=== PATIENT | female | born 1985 | race Asian ===

== ENCOUNTER 2016-02-29 01:59 | Emergency (ER) | payer OTHER ==
[~2016-02-29] VITALS: Ht 172.7 cm; Wt 62.6 kg
[2016-02-29 02:02] VITALS: TEMP 36.9; Ht 172.7 cm; Wt 62.6 kg
[2016-02-29] MEDS ORDERED: ALBUT/IPRATROP 3MG/0.5MG NEB 3 ML VIAL INH STA (02:24)
--- NOTE | 2016-02-29 02:39 | EMERGENCY ROOM VISIT NOTE ---
History Report prepared by Aga: Layla Arteaga Under the Supervision of: Dr. Geovanna Dominguez D.O. First contact with patient: 02:16 Chief Complaint: COUGH Stated Complaint: COUGH,CONGESTED,LOSING VOICE,SOME VOMITING Nursing Triage Summary: c/o a cough for a week. dry cough now " paula loosing my voice." History of Present Illness The patient is a 30 year old female who presents to the Emergency Room with complaints of a persistent cough that began one week ago, but has gradually been worsening. She currently rates her discomfort as a 7/10 in severity. The patient states that she began losing her voice this week. She states that within the last few days she has been coughing so much that she begins to vomit. The patient states that she is experiencing burning body aches due to the coughing. She states that for the past hour she was persistently vomiting so she came for further evaluation. The patient states that she has had bronchitis in the past, but denies any history of asthma or pneumonia. She additionally notes that she has had a fever this week. 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 She denies any active medical problems. Source of History: patient Onset: one week ago Position: other (global) Symptom Intensity: 7/10 Quality: other (cough) Timing: worsening (gradually), other (persistent) Associated Symptoms: + fevers, + vomiting Note: Associated Symptoms: burning body aches. Review of Systems See HPI for pertinent positives & negatives. A total of 10 systems reviewed and were otherwise negative. Past Medical & Surgical Surgical Problems: (1) [place] teeth extracted Family History Diabetes mellitus Heart disease Hypertension Social History Smoking Status: Never Smoker Smokeless Tobacco Use: No Alcohol Use: none Marital Status: Housing Status: lives with significant other Occupation Status: employed Current/Historical Medications Scheduled Control Pills ( Control Pills), 1 TAB PO DAILY Hydrocodone W/ Homatropine (Hycodan 5/1.5MG 5 Ml), 5 ML PO Q4H Scheduled PRN Epinephrine (Epipen), 0.3 MG IM UD PRN for ALLERGIC REACTION Allergies Coded Allergies: Aspirin (Verified Allergy, Severe, ANAPHYLAXIS, 02/29/16) Cat Dander (Verified Allergy, Unknown, SWELLING, 02/29/16) Dog Dander (Verified Allergy, Unknown, SWELLING, 02/29/16) Physical Exam Vital Signs Date Time Temp Pulse Resp B/P Pulse Ox O2 Delivery O2 Flow Rate FiO2 02/29/16 04:56 68 20 99 02/29/16 03:54 68 18 107/62 99 Room Air 02/29/16 02:14 98 Room Air 02/29/16 02:02 99 Room Air 02/29/16 02:02 36.9 95 20 124/87 97 Room Air Physical Exam HEENT: Head - normocephalic and atraumatic Pupils are equal, round, and reactive to light. Extraocular eye muscles are intact, and sclera are anicteric. Nose - moist nasal mucosa without discharge. Mouth - moist buccal mucosa. Oropharynx is moderately erythematous and there is no tonsillar exudate or edema noted. Neck: Supple; no JVD, nuchal rigidity, cervical lymphadenopathy. Heart: Regular rate and rhythm. There is a normal S1 and S2 with no murmurs, clicks, or gallops appreciated. Lungs: Expiratory wheezing. no rales, or rhonchi. Abdomen: Soft, completely nontender, nondistended, with good bowel sounds. There are no palpable pulsatile masses or hepatosplenomegaly. There is no guarding, rigidity, or rebound noted. Extremities: No evidence of cyanosis, clubbing, or edema. There are easily palpable peripheral pulses. Skin: warm and dry with good turgor and no rashes. Medical Decision & Procedures ER Provider Diagnostic Interpretation: Chest x-ray: no pulmonary infiltrate, no pneumothorax. Laboratory Results Test 02/29/16 02:32 Influenza Type A Antigen Neg for Influ A (NEG) Influenza Type B Antigen Neg for Influ B (NEG) Laboratory results per my review. Medications Administered Medications (Trade) Dose Ordered Sig/Jassi Route Start Time Stop Time Status Last Admin Dose Admin Albuterol/ Ipratropium (Duoneb) 3 ml NOW STAT INH 02/29/16 02:24 02/29/16 02:26 DC 02/29/16 02:34 3 ML Hydrocodone Bit/ Homatropine Methylb (Hycodan Syrup) 5 ml NOW STAT PO 02/29/16 03:37 02/29/16 03:39 DC 02/29/16 03:43 5 ML Albuterol (Ventolin Hfa Inhaler) 2 puffs NOW ONCE INH 02/29/16 04:15 02/29/16 04:16 DC 02/29/16 04:33 2 PUFFS Procedure Patient was treated with DuoNeb 3 ml INH, Hycodan Syrup 5 ml PO, Albuterol 2 puffs INH. ED Course 0219: Past medical records reviewed. The patient was evaluated in room A3. A complete history and physical exam was performed. 0224: Ordered DuoNeb 3 ml INH. Patient had a chest x-ray as described above. 0337: The patient is still coughing. Ordered Hycodan Syrup 5 ml PO. 0405: I reevaluated the patient and she is feeling much better. I discussed the exam findings with her and I discussed the treatment plan with her. She verbalized complete understanding and agreement. She is ready to go home. 0415: Ordered Albuterol 2 puffs INH to go home. Medical Decision The patient is a 30 year old female who presents to the ED with a cough. Differential diagnosis includes bronchitis, pneumonia, reactive airway disease, pharyngitis. Lab interpretation: negative influenza. This is a 30-year-old female patient who has a persistent cough which is causing her diffuse discomfort in her thorax and significant sore throat. I had offered to give the patient something like an NSAID for the pain in her thorax throat but she has an allergy to aspirin. The patient got significant relief of her symptoms after receiving the Hycodan cough syrup. I believe she is suffering from acute viral bronchitis. Because of her wheezing , she was given an albuterol inhaler and a prescription for the Hycodan cough syrup. The patient was told to follow-up with her PCP if she developed any worsening symptoms such as fever with a cough became productive. Impression Primary Impression: Acute bronchitis Scribe Attestation The scribe's documentation has been prepared under my direction and personally reviewed by me in its entirety. I confirm that the note above accurately reflects all work, treatment, procedures, and medical decision making performed by me. Departure Information Dispostion Home / Self-Care Prescriptions Hydrocodone W/ Homatropine (HYCODAN 5/1.5MG 5 ML) 1 Syp Syp 5 ML PO Q4H for Cough, #60 ML Prov: Geovanna Dominguez D.O. 02/29/16 Referrals No Doctor, Assigned (PCP) Forms HOME CARE DOCUMENTATION FORM, IMPORTANT VISIT INFORMATION Patient Instructions ED Bronchitis Viral, My [facility] Additional Instructions Rest. Albuterol inhaler - 2 puffs every 4-6 hours for next 3 days then as needed. hycodan - 5ml every 4 hours for cough Follow up with PCP if symptoms worsen.
[2016-02-29] MEDS ORDERED: EPP3/2 IM (03:31)
[2016-02-29] MEDS ORDERED: BCPILLS PO (03:31)
[2016-02-29] MEDS ORDERED: HYDROCODONE/HOMATROPINE SYRUP 5MG/1.5MG 5ML UDP PO STA (03:37)
[2016-02-29 03:54] VITALS: BP 107/62
[2016-02-29] MEDS ORDERED: ALBUTEROL HFA 8 GM INHALER INH ONE (04:15)
[2016-02-29] MEDS ORDERED: HYDR5SYP11 PO (04:45)
[2016-02-29 04:56] VITALS: PULSE 68; O2SAT 99
--- NOTE | 2016-02-29 09:30 | DIAGNOSTIC IMAGING REPORT ---
TWO VIEW CHEST CLINICAL HISTORY: Cough. FINDINGS: PA and lateral chest radiographs are obtained. No prior studies are available for comparison at the time of dictation. The cardiomediastinal silhouette is unremarkable. The lungs appear slightly hyperinflated, likely due to good inspiratory result. There is biapical scarring. Nonspecific interstitial thickening is noted. A calcified granuloma is present in the right lower lobe. No airspace consolidation or pleural effusion is seen. There is no pneumothorax. The bony thorax appears intact. IMPRESSION: No active disease in the chest. Electronically signed by: Devon Pavon M.D. 02/29/2016 9:28 AM Dictated Date/Time: 02/29/2016 9:27 AM
== END 2016-02-29 04:58 | disposition home or self-care (01) ==
LOC: C.EDB 02:02 → C.EDA 04:58
DX: J20.9 Acute bronchitis, unspecified (principal); Z83.3 Family history of diabetes mellitus; Z82.49 Family history of ischemic heart disease and other diseases of the circulatory system; Z79.3 Long term (current) use of hormonal contraceptives

== ENCOUNTER 2016-06-04 06:04 | Emergency (ER) | payer OTHER ==
[~2016-06-04] VITALS: Ht 172.7 cm; Wt 63.4 kg
[~2016-06-04 06:04] MED LIST: BCPILLS PO; EPP3/2 IM
[2016-06-04 06:07] VITALS: TEMP 36.7; O2SAT 95
[2016-06-04 06:20] VITALS: Ht 172.7 cm; Wt 63.4 kg
[2016-06-04 07:07] LABS: BASO % 0.5 %; BASO ABS # 0.02 K/uL (0-0.2); COMPLETE YES; EOS % 2.7 %; IG% 0.2 %; LYMPH ABS # 1.51 K/uL (1.2-3.4); MEAN CELL VOLUME 81.8 fL (80-100); MEAN CORPUSCULAR HEMOGLOBIN 28.3 pg (25-34); MEAN CORPUSCULAR HGB CONC 34.6 g/dl (32-36); MEAN PLATELET VOLUME 10.3 fL (7.4-10.4); MONO % 7.4 %; NEUT % 55.2 %; PLATELET COUNT 220 K/uL (130-400); RED BLOOD COUNT 5.01 M/uL (4.2-5.4); WHITE BLOOD COUNT 4.44 K/uL (4.8-10.8)
[2016-06-04] MEDS ORDERED: PREN1PAK9 PO (07:07)
[2016-06-04 07:22] LABS: BUN/CREATININE RATIO 17.6 (10-20); CALCIUM 8.7 mg/dl (8.5-10.1); CREATININE 0.74 mg/dl (0.60-1.20); POTASSIUM 3.9 mmol/L (3.5-5.1)
[2016-06-04 07:23] LABS: PROTHROMBIN TIME (PATIENT) 10.8 SECONDS (9.0-12.0)
[2016-06-04 07:25] LABS: ALB/GLOB RATIO 1.4 (0.9-2)
[2016-06-04 07:36] LABS: URINE APPEARANCE CLOUDY (CLEAR); URINE BILIRUBIN NEG (NEG); URINE NITRITE NEG (NEG); URINE SPECIFIC GRAVITY 1.022 (1.000-1.030); UROBILINOGEN NEG (NEG)
[2016-06-04 07:37] LABS: MANUAL MICROSCOPIC REQUIRED? NO; REVIEW REQ? YES; URINE COLOR AMBER
[2016-06-04 07:44] VITALS: PULSE 78
[2016-06-04 07:46] LABS: PREG INTERNAL NEGATIVE QC NEG CLEAR BACKGROUND; PREG INTERNAL POSITIVE QC POS CONTROL LINE
[2016-06-04 08:04] LABS: URINE EPITHELIAL CELL AUTO 20-30 /lpf (0-5)
[2016-06-04 09:04] VITALS: BP 117/86
--- NOTE | 2016-06-04 09:09 | DIAGNOSTIC IMAGING REPORT ---
ULTRASOUND OF THE PELVIS CLINICAL HISTORY: Vaginal bleeding. Reportedly . COMPARISON STUDY: No priors. TECHNIQUE: Real-time, grayscale, and color flow sonography of the pelvis is performed both transabdominally and endovaginally. Images are reviewed in the transverse and longitudinal planes. FINDINGS: Uterus: The uterus is normal in size and echotexture, measuring 7.6 x 3.4 x 4.1 cm. Endometrium: The endometrium is normal in appearance, and the endometrial stripe is normal in thickness measuring up to 0.8 cm. Ovaries: The ovaries are normal in size and morphology. The right ovary measures 3.3 x 1.9 x 2.3 cm and the left ovary measures 3.0 x 1.9 x 1.7 cm. Small follicles are seen bilaterally. Normal Doppler waveforms are shown within both ovaries. Pelvis: There is trace free fluid in the cul-de-sac. No concerning adnexal lesion is seen. IMPRESSION: 1. No intrauterine gestation is identified. This could simply reflect an intrauterine gestation that is too small to visualize or a missed . Although there is no concerning adnexal lesion identified, in the setting of a positive test without a confirmed intrauterine gestation ectopic would be impossible to exclude. Close clinical, laboratory, and sonographic follow-up is recommended. 2. The ovaries are normal in appearance. 3. There is trace and likely physiologic free fluid in the cul-de-sac. Electronically signed by: Devon Pavon M.D. 06/04/2016 9:07 AM Dictated Date/Time: 06/04/2016 9:00 AM
--- NOTE | 2016-06-04 09:31 | EMERGENCY ROOM VISIT NOTE ---
History Report prepared by Aga: Jenniefr Rueda Under the Supervision of: Dr. Mark Giron M.D. First contact with patient: 06:17 Chief Complaint: ED VAG BLEEDING Stated Complaint: BLEEDING DURING EARLY History of Present Illness The patient is a 31 year old female who presents to the Emergency Room with complaints of persistent vaginal bleeding starting yesterday evening. She took a test 3 days ago which was positive. She went to urgent care where they confirmed her . Yesterday evening she started having vaginal bleeding. She had to begin using a pad. She has left sided abdominal pain which she attributes to cramping. She does not want anything for pain as the pain in normal for her. Her LNMP was May 05. Source of History: patient Onset: yesterday evening Position: other (vaginal) Quality: other (bleeding) Timing: other (persistent) Associated Symptoms: + abdominal pain (left) Review of Systems See HPI for pertinent positives & negatives. A total of 10 systems reviewed and were otherwise negative. Past Medical & Surgical Surgical Problems: (1) [place] teeth extracted Family History Diabetes mellitus Heart disease Hypertension Social History Smoking Status: Never Smoker Alcohol Use: none Marital Status: Housing Status: lives with significant other Occupation Status: employed Current/Historical Medications Scheduled Mv & Min W/Fe Fumarat (Similac Early Sh), 1 TAB PO DAILY Scheduled PRN Epinephrine (Epipen), 0.3 MG IM UD PRN for ALLERGIC REACTION Allergies Coded Allergies: Aspirin (Verified Allergy, Severe, ANAPHYLAXIS, 06/04/16) Acetaminophen (Unverified Allergy, Unknown, SWELLING HANDS AND THROAT, ) Cat Dander (Verified Allergy, Unknown, SWELLING, 06/04/16) Celecoxib (Unverified Allergy, Unknown, ., 06/04/16) Dog Dander (Verified Allergy, Unknown, SWELLING, 06/04/16) Physical Exam Vital Signs Date Time Temp Pulse Resp B/P Pulse Ox O2 Delivery O2 Flow Rate FiO2 06/04/16 09:04 117/86 06/04/16 07:44 78 113/79 06/04/16 06:07 36.7 83 20 132/76 95 Room Air Physical Exam GENERAL: Patient is a healthy-appearing well-nourished HEAD: Normocephalic atraumatic EYES: Ocular movements intact pupils equal and react to light OROPHARYNX mucous membranes are moist no exudates present no erythema or edema present NECK: Supple no nuchal rigidity CHEST: Good equal expansion LUNGS: Clear and equal to auscultation CARDIAC: Normal S1 and S2 ABDOMEN: Soft nontender no guarding BACK: No CVA tenderness EXTREMITIES: No pain upon palpation normal muscle strength in all groups no clubbing cyanosis or edema NEURO: Patient is following commands is answering questions appropriately. Alert and oriented x3 Cranial Nerves 2-12 grossly intact Medical Decision & Procedures ER Provider Diagnostic Interpretation: Radiology results as stated below per my review and radiologist interpretation: ULTRASOUND OF THE PELVIS CLINICAL HISTORY: Vaginal bleeding. Reportedly . COMPARISON STUDY: No priors. TECHNIQUE: Real-time, grayscale, and color flow sonography of the pelvis is performed both transabdominally and endovaginally. Images are reviewed in the transverse and longitudinal planes. FINDINGS: Uterus: The uterus is normal in size and echotexture, measuring 7.6 x 3.4 x 4.1 cm. Endometrium: The endometrium is normal in appearance, and the endometrial stripe is normal in thickness measuring up to 0.8 cm. Ovaries: The ovaries are normal in size and morphology. The right ovary measures 3.3 x 1.9 x 2.3 cm and the left ovary measures 3.0 x 1.9 x 1.7 cm. Small follicles are seen bilaterally. Normal Doppler waveforms are shown within both ovaries. Pelvis: There is trace free fluid in the cul-de-sac. No concerning adnexal lesion is seen. IMPRESSION: 1. No intrauterine gestation is identified. This could simply reflect an intrauterine gestation that is too small to visualize or a missed . Although there is no concerning adnexal lesion identified, in the setting of a positive test without a confirmed intrauterine gestation ectopic would be impossible to exclude. Close clinical, laboratory, and sonographic follow-up is recommended. 2. The ovaries are normal in appearance. 3. There is trace and likely physiologic free fluid in the cul-de-sac. Electronically signed by: Devon Pavon M.D. 06/04/2016 9:07 AM Dictated Date/Time: 06/04/2016 9:00 AM Laboratory Results 06/04/16 06:58 Red Blood Count 5.01, Mean Corpuscular Volume 81.8, Mean Corpuscular Hemoglobin 28.3, Mean Corpuscular Hemoglobin Concent 34.6, Mean Platelet Volume 10.3, Neutrophils (%) (Auto) 55.2, Lymphocytes (%) (Auto) 34.0, Monocytes (%) (Auto) 7.4, Eosinophils (%) (Auto) 2.7, Basophils (%) (Auto) 0.5, Neutrophils # (Auto) 2.45, Lymphocytes # (Auto) 1.51, Monocytes # (Auto) 0.33, Eosinophils # (Auto) 0.12, Basophils # (Auto) 0.02 06/04/16 06:58 Test 06/04/16 06:40 06/04/16 06:58 Urine Color GRETCHEN Urine Appearance CLOUDY (CLEAR) Urine pH 5.0 (4.5-7.5) Urine Specific [place] 1.022 (1.000-1.030) Urine Protein TRACE (NEG) Urine Glucose (UA) NEG (NEG) Urine Ketones NEG (NEG) Urine Occult Blood 3+ (NEG) Urine Nitrite NEG (NEG) Urine Bilirubin NEG (NEG) Urine Urobilinogen NEG (NEG) Urine Leukocyte Esterase SMALL (NEG) Urine WBC (Auto) >30 /hpf (0-5) Urine RBC (Auto) >30 /hpf (0-4) Urine Hyaline Casts (Auto) 1-5 /lpf (0-5) Urine Epithelial Cells (Auto) 20-30 /lpf (0-5) Urine Bacteria (Auto) NEG (NEG) Urine Renal Epithelial Cells /lpf (0-5) Urine Test POS (NEG) White Blood Count 4.44 K/uL (4.8-10.8) Red Blood Count 5.01 M/uL (4.2-5.4) Hemoglobin 14.2 g/dL (12.0-16.0) Hematocrit 41.0 % (37-47) Mean Corpuscular Volume 81.8 fL (80-100) Mean Corpuscular Hemoglobin 28.3 pg (25-34) Mean Corpuscular Hemoglobin Concent 34.6 g/dl (32-36) Platelet Count 220 K/uL (130-400) Mean Platelet Volume 10.3 fL (7.4-10.4) Neutrophils (%) (Auto) 55.2 % Lymphocytes (%) (Auto) 34.0 % Monocytes (%) (Auto) 7.4 % Eosinophils (%) (Auto) 2.7 % Basophils (%) (Auto) 0.5 % Neutrophils # (Auto) 2.45 K/uL (1.4-6.5) Lymphocytes # (Auto) 1.51 K/uL (1.2-3.4) Monocytes # (Auto) 0.33 K/uL (0.11-0.59) Eosinophils # (Auto) 0.12 K/uL (0-0.5) Basophils # (Auto) 0.02 K/uL (0-0.2) RDW Standard Deviation 36.3 fL (36.4-46.3) RDW Coefficient of Variation 12.2 % (11.5-14.5) Immature Granulocyte % (Auto) 0.2 % Immature Granulocyte # (Auto) 0.01 K/uL (0.00-0.02) Prothrombin Time 10.8 SECONDS (9.0-12.0) Prothromb Time International Ratio 1.0 (0.9-1.1) Activated Partial Thromboplast Time 25.9 SECONDS (21.0-31.0) Partial Thromboplastin Ratio 1.0 Anion Gap 7.0 mmol/L (3-11) Est Creatinine Clear Calc Drug Dose 110.2 ml/min Estimated GFR () 125.1 Estimated GFR (Non- 108.0 BUN/Creatinine Ratio 17.6 (10-20) Calcium Level 8.7 mg/dl (8.5-10.1) Total Bilirubin 0.3 mg/dl (0.2-1) Aspartate Amino Transf (AST/SGOT) 18 U/L (15-37) Alanine Aminotransferase (ALT/SGPT) 38 U/L (12-78) Alkaline Phosphatase 48 U/L (45-117) Total Protein 6.6 gm/dl (6.4-8.2) Albumin 3.8 gm/dl (3.4-5.0) Globulin 2.8 gm/dl (2.5-4.0) Albumin/Globulin Ratio 1.4 (0.9-2) Human Chorionic Gonadotropin, Quant 20 mIU/mL Labs reviewed by ED physician. ED Course 0622: Past medical records reviewed. The patient was evaluated in room A11. A complete history and physical examination was performed. 0921: Upon reexamination the patient is resting comfortably. I discussed results and treatment plan with the patient. She verbalizes agreement and understanding. The patient is ready for discharge. Medical Decision Differential diagnosis: Etiologies such as ectopic , dysfunction uterine bleeding, bleeding dyscrasia, trauma, infection, as well as others were entertained. This is a 31-year-old female who presents emergency department complaining of vaginal bleeding. The patient took a home test several days ago and was found to be positive. This was confirmed at [facility]. Due to the nature the patient's complaint an IV was established, the patient has a positive blood type however her beta hCG is only 20. With a beta hCG of 20 and a positive test several days ago I would assume that this is falling. In addition the patient has a normal pelvic ultrasound. Based on these findings I recommended that the patient immediately return to the emergency department if she develops severe abdominal pain. Serial abdominal examinations were performed on the patient in the emergency department and at no time did the patient exhibit a surgical abdomen. I do believe she is well enough to be discharged home for follow-up with her primary care physician. Patient and family were in agreement with the treatment plan. Impression Primary Impression: Vaginal bleeding Scribe Attestation The scribe's documentation has been prepared under my direction and personally reviewed by me in its entirety. I confirm that the note above accurately reflects all work, treatment, procedures, and medical decision making performed by me. Departure Information Dispostion Home / Self-Care Referrals No Doctor, Assigned (PCP) Forms HOME CARE DOCUMENTATION FORM, IMPORTANT VISIT INFORMATION, WORK / SCHOOL INSTRUCTIONS Patient Instructions ED Miscarriage Poss, Miscarriage - [facility], Miscarriage Emotions, Miscarriage Recovery, Miscarriage Trying Again, My [facility] Additional Instructions Need repeat [facility] drawn (20 today) Return if severe abd pain You have been examined and treated today on an emergency basis only. This is not a substitute for, or an effort to provide, complete comprehensive medical care. It is impossible to recognize and treat all injuries or illnesses in a single emergency department visit. It is therefore important that you follow up closely with [facility] as soon as possible for an appointment. Thank you for your time and consideration. I look forward to speaking with you again soon. Please don't hesitate to call us if you have any questions.
--- NOTE | 2016-06-07 13:06 | Pharmacy Progress Note ---
ED Pharmacist Progress Note Date of Service: Jun 07, 2016. Received fax from [facility] with the following result: 06/07/16 08:12 hCG, Quantitative <5.0 mIU/mL (non- and male) Called patient and informed of result (at the request of Dr. Giron). Patient acknowledged understanding.
== END 2016-06-04 09:31 | disposition home or self-care (01) ==
LOC: C.EDB 06:05 → C.EDA 09:31
DX: O20.8 Other hemorrhage in early pregnancy (principal); R10.12 Left upper quadrant pain; R10.32 Left lower quadrant pain; Z83.3 Family history of diabetes mellitus; Z82.49 Family history of ischemic heart disease and other diseases of the circulatory system

== ENCOUNTER 2017-01-12 14:46 | Emergency (ER) | payer OTHER ==
[~2017-01-12] VITALS: Ht 172.7 cm; Wt 63.0 kg
[~2017-01-12 14:46] MED LIST changes: -BCPILLS PO; +PREN1PAK9 PO
[2017-01-12 14:56] VITALS: Ht 172.7 cm; Wt 63.0 kg
[2017-01-12] MEDS ORDERED: SODIUM CHLORIDE 0.9% 1000ML 1,000 ML IV STA (15:28)
[2017-01-12] MEDS ORDERED: ACETAMINOPHEN 500 MG TAB PO STA (15:36)
--- NOTE | 2017-01-12 16:01 | EMERGENCY ROOM VISIT NOTE ---
History Report prepared by Aga: Jennifer Rueda Under the Supervision of: Dr. Armin Singh D.O. 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 She thinks she is having a miscarriage. She was sent here from [facility]. The patient had a positive test 2.5 weeks ago. This is her 3rd . Her first 2 pregnancies ended in miscarriage. Her last period was 1 month and 10 days ago. She has been passing clots and tissue today. She is having lower abdominal cramping. She denies any fever. She denies any history of ectopic . 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 A total of 10 systems reviewed and were otherwise negative. Past Medical & Surgical Surgical Problems: (1) Darragh teeth extracted Family History Diabetes mellitus Heart disease Hypertension Social History Smoking Status: Never Smoker Alcohol Use: none Marital Status: Housing Status: lives with significant other Occupation Status: employed Current/Historical Medications Scheduled Mv & Min W/Fe Fumarat (Similac Early Sh), 1 TAB PO DAILY Scheduled PRN Epinephrine (Epipen), 0.3 MG IM UD PRN for ALLERGIC REACTION Allergies Coded Allergies: Aspirin (Verified Allergy, Severe, ANAPHYLAXIS, 01/12/17) Acetaminophen (Unverified Allergy, Unknown, SWELLING HANDS AND THROAT, ) Cat Dander (Verified Allergy, Unknown, SWELLING, 01/12/17) Celecoxib (Unverified Allergy, Unknown, ., 01/12/17) Dog Dander (Verified Allergy, Unknown, SWELLING, 01/12/17) Physical Exam Vital Signs Date Time Temp Pulse Resp B/P (MAP) Pulse Ox O2 Delivery O2 Flow Rate FiO2 01/12/17 18:22 36.9 70 16 106/64 100 01/12/17 17:25 70 16 106/64 100 Room Air 01/12/17 16:04 78 01/12/17 16:00 73 18 118/86 100 Room Air 01/12/17 14:56 36.9 58 18 121/73 99 Room Air Physical Exam GENERAL: Patient is awake, alert, and somewhat anxious appearing. EYES: The conjunctivae are clear. The pupils are round and reactive. EARS, NOSE, MOUTH AND THROAT: The nose is without any evidence of any deformity. Mucous membranes are moist tongue is midline NECK: The neck is nontender and supple. RESPIRATORY: Normal respiratory effort is noted there is no evidence of wheezing rhonchi or rales CARDIOVASCULAR: Regular rate and rhythm noted there no murmurs rubs or gallops normal S1 normal S2 GASTROINTESTINAL: The abdomen is mildly distended, but soft. Suprapubic tenderness to palpation, but no guarding or rigidity. MUSCULOSKELETAL/EXTREMITIES: There is no evidence of gross deformity full range of motion is noted in the hips and shoulders SKIN: There is no obvious evidence of any rash. There are no petechiae, pallor or cyanosis noted. NEUROLOGIC: Patient is awake alert and oriented x3 Medical Decision & Procedures ER Provider Diagnostic Interpretation: Radiology results as stated below per my review and radiologist interpretation: <14 WKS SINGLE CLINICAL HISTORY: bleeding pelvic pain TECHNIQUE: Ultrasound COMPARISON STUDY: 06/04/2016 FINDINGS: Uterus measures 7.9 cm maximum dimension. Endometrial thickness is 2 mm. No definite gestational sac. Right ovary measures 2.6 cm x 2.3 cm maximum dimension. Several small follicular cyst. Normal vascular flow. Left ovary measures 4.2 cm in maximum dimension. Several small follicular cyst. 2.6 cm corpus luteum cyst. Normal vascular flow IMPRESSION: 1. No evidence for an intrauterine gestational sac. 2. Several small cervical nabothian cysts. 3. 2.7 cm left ovarian corpus luteum cyst. The above report was generated using voice recognition software. It may contain grammatical, syntax or spelling errors. Electronically signed by: Ponce Linares M.D. 01/12/2017 5:06 PM Dictated Date/Time: 01/12/2017 5:04 PM Laboratory Results 01/12/17 16:05 Red Blood Count 5.09, Mean Corpuscular Volume 83.9, Mean Corpuscular Hemoglobin 28.7, Mean Corpuscular Hemoglobin Concent 34.2, Mean Platelet Volume 10.5, Neutrophils (%) (Auto) 60.6, Lymphocytes (%) (Auto) 30.0, Monocytes (%) (Auto) 7.5, Eosinophils (%) (Auto) 1.4, Basophils (%) (Auto) 0.2, Neutrophils # (Auto) 5.50, Lymphocytes # (Auto) 2.73, Monocytes # (Auto) 0.68, Eosinophils # (Auto) 0.13, Basophils # (Auto) 0.02 01/12/17 16:05 Test 01/12/17 16:05 White Blood Count 9.09 K/uL (4.8-10.8) Red Blood Count 5.09 M/uL (4.2-5.4) Hemoglobin 14.6 g/dL (12.0-16.0) Hematocrit 42.7 % (37-47) Mean Corpuscular Volume 83.9 fL (80-100) Mean Corpuscular Hemoglobin 28.7 pg (25-34) Mean Corpuscular Hemoglobin Concent 34.2 g/dl (32-36) Platelet Count 230 K/uL (130-400) Mean Platelet Volume 10.5 fL (7.4-10.4) Neutrophils (%) (Auto) 60.6 % Lymphocytes (%) (Auto) 30.0 % Monocytes (%) (Auto) 7.5 % Eosinophils (%) (Auto) 1.4 % Basophils (%) (Auto) 0.2 % Neutrophils # (Auto) 5.50 K/uL (1.4-6.5) Lymphocytes # (Auto) 2.73 K/uL (1.2-3.4) Monocytes # (Auto) 0.68 K/uL (0.11-0.59) Eosinophils # (Auto) 0.13 K/uL (0-0.5) Basophils # (Auto) 0.02 K/uL (0-0.2) RDW Standard Deviation 38.7 fL (36.4-46.3) RDW Coefficient of Variation 12.7 % (11.5-14.5) Immature Granulocyte % (Auto) 0.3 % Immature Granulocyte # (Auto) 0.03 K/uL (0.00-0.02) Prothrombin Time 12.7 SECONDS (9.0-12.0) Prothromb Time International Ratio 1.2 (0.9-1.1) Activated Partial Thromboplast Time 27.3 SECONDS (21.0-31.0) Partial Thromboplastin Ratio 1.1 Anion Gap 10.0 mmol/L (3-11) Est Creatinine Clear Calc Drug Dose 114.2 ml/min Estimated GFR () 131.5 Estimated GFR (Non- 113.5 BUN/Creatinine Ratio 12.6 (10-20) Calcium Level 9.0 mg/dl (8.5-10.1) Total Bilirubin 0.5 mg/dl (0.2-1) Aspartate Amino Transf (AST/SGOT) 16 U/L (15-37) Alanine Aminotransferase (ALT/SGPT) 23 U/L (12-78) Alkaline Phosphatase 43 U/L (45-117) Total Protein 7.2 gm/dl (6.4-8.2) Albumin 3.9 gm/dl (3.4-5.0) Globulin 3.3 gm/dl (2.5-4.0) Albumin/Globulin Ratio 1.2 (0.9-2) Human Chorionic Gonadotropin, Quant 84 mIU/mL Laboratory results per my review. Medications Administered Medications (Trade) Dose Ordered Sig/Jassi Route Start Time Stop Time Status Last Admin Dose Admin Sodium Chloride 1,000 ml @ 999 mls/hr Q1H1M STAT IV 01/12/17 15:28 01/12/17 16:28 DC 01/12/17 15:58 999 MLS/HR Acetaminophen (Tylenol Tab) 1,000 mg NOW STAT PO 01/12/17 15:36 01/12/17 15:37 DC 01/12/17 15:57 1,000 MG Procedure Bedside US was done. No definite intrauterine gestational sac noted. There appeared to be complex echoes noted in the uterus possibly consistent with blood. ED Course 1520: The patient was evaluated in room B3B. A complete history and physical examination were performed. 1528: NSS 1000 ml @ 999 mls/hr IV. 1536: Acetaminophen 1000 mg PO. 1717: I reevaluated the patient. I updated her on the results. 1725: Upon reevaluation, the patient is resting comfortably. I discussed the results and treatment plan with her. She verbalized agreement of the treatment plan. She was discharged home. Medical Decision Prior records/ancillary studies reviewed. Triage Nursing notes reviewed. Additional history obtained from the SO. The patient's history was concerning for vaginal bleeding and abdominal pain. Differential diagnosis: Etiologies such as ectopic , dysfunction uterine bleeding, bleeding dyscrasia, trauma, infection, as well as others were entertained. The patient is a 31-year-old female who presented to the emergency department for vaginal bleeding. The patient had cramping and bleeding. The patient recently found out she was With a urine test. She has had 2 previous early term miscarriages. The patient did not have an acute surgical abdomen by physical exam. Her bedside ultrasound did not show a definite intrauterine . I discussed the patient's laboratory radiographic studies with her. She was encouraged to follow-up with her primary DIRECTOR PHARMACEUTICAL physician within 48 hours for repeat laboratory studies as well as repeat ultrasound if needed. She was also encouraged to drink plenty clear liquids and continue using [id number] medications for pain. She was also encouraged to return to the emergency apartment immediately if symptoms change worsen or the need arises. Medication Reconcilliation Current Medication List: was personally reviewed by me Blood Pressure Screening Patient's blood pressure: Normal blood pressure Blood pressure disposition: Did not require urgent referral Impression Primary Impression: Vaginal bleeding Additional Impression: Missed Scribe Attestation The scribe's documentation has been prepared under my direction and personally reviewed by me in its entirety. I confirm that the note above accurately reflects all work, treatment, procedures, and medical decision making performed by me. Departure Information Dispostion Home / Self-Care Referrals Axel Lee M.D. [facility] Forms HOME CARE DOCUMENTATION FORM, IMPORTANT VISIT INFORMATION, WORK / SCHOOL INSTRUCTIONS Patient Instructions ED Miscarriage Poss, My [facility] Additional Instructions Continue all medications as prescribed. Drink plenty clear liquids. Call the OB/ PHOTO MANAGER physician to schedule follow-up appointment. I would recommend a recheck of the blood test for to be sure the number is coming down. Return to the emergency apartment immediately if symptoms change worsen or the need arises. Problem Qualifiers
[2017-01-12 16:38] LABS: BASO % 0.2 %; BASO ABS # 0.02 K/uL (0-0.2); COMPLETE YES; EOS % 1.4 %; HEMATOCRIT 42.7 % (37-47); IG% 0.3 %; LYMPH ABS # 2.73 K/uL (1.2-3.4); MEAN CELL VOLUME 83.9 fL (80-100); MEAN CORPUSCULAR HEMOGLOBIN 28.7 pg (25-34); MEAN CORPUSCULAR HGB CONC 34.2 g/dl (32-36); MEAN PLATELET VOLUME 10.5 fL (7.4-10.4); MONO % 7.5 %; NEUT % 60.6 %; PLATELET COUNT 230 K/uL (130-400); RED BLOOD COUNT 5.09 M/uL (4.2-5.4); WHITE BLOOD COUNT 9.09 K/uL (4.8-10.8)
[2017-01-12 16:48] LABS: INR 1.2 (0.9-1.1); PARTIAL THROMBOPLASTIN RATIO 1.1; PROTHROMBIN TIME (PATIENT) 12.7 SECONDS (9.0-12.0)
[2017-01-12 17:02] LABS: BUN/CREATININE RATIO 12.6 (10-20); CREATININE 0.71 mg/dl (0.60-1.20); POTASSIUM 3.7 mmol/L (3.5-5.1)
[2017-01-12 17:05] LABS: ALB/GLOB RATIO 1.2 (0.9-2)
--- NOTE | 2017-01-12 17:07 | DIAGNOSTIC IMAGING REPORT ---
<14 WKS SINGLE CLINICAL HISTORY: bleeding pelvic pain TECHNIQUE: Ultrasound COMPARISON STUDY: 06/04/2016 FINDINGS: Uterus measures 7.9 cm maximum dimension. Endometrial thickness is 2 mm. No definite gestational sac. Right ovary measures 2.6 cm x 2.3 cm maximum dimension. Several small follicular cyst. Normal vascular flow. Left ovary measures 4.2 cm in maximum dimension. Several small follicular cyst. 2.6 cm corpus luteum cyst. Normal vascular flow IMPRESSION: 1. No evidence for an intrauterine gestational sac. 2. Several small cervical nabothian cysts. 3. 2.7 cm left ovarian corpus luteum cyst. The above report was generated using voice recognition software. It may contain grammatical, syntax or spelling errors. Electronically signed by: Ponce Linares M.D. 01/12/2017 5:06 PM Dictated Date/Time: 01/12/2017 5:04 PM
[2017-01-12 18:22] VITALS: BP 106/64; PULSE 70; TEMP 36.9; O2SAT 100
== END 2017-01-12 18:22 | disposition home or self-care (01) ==
LOC: C.EDB 14:48
DX: O02.1 Missed abortion (principal); Z83.3 Family history of diabetes mellitus; Z82.49 Family history of ischemic heart disease and other diseases of the circulatory system

== ENCOUNTER → 2017-03-03 | Outpatient (CLI) | payer OTHER | END | disposition home or self-care (01) | LOC: C.LABSPEC 15:26 | PROVIDERS: ATTEND Obstetrics & Gynecology | DX: Z01.419 Encounter for gynecological examination (general) (routine) without abnormal findings (principal) ==

== ENCOUNTER → 2017-03-03 | Outpatient (CLI) | payer OTHER | END | disposition home or self-care (01) | LOC: C.PAPS 15:34 | PROVIDERS: ATTEND Obstetrics & Gynecology | DX: Z12.4 Encounter for screening for malignant neoplasm of cervix (principal) ==

== ENCOUNTER → 2017-04-19 | Outpatient (CLI) | payer OTHER ==
--- NOTE | 2017-04-19 13:20 | DIAGNOSTIC IMAGING REPORT ---
RIGHT FOOT 3 VIEWS CLINICAL HISTORY: Cyst of the right foot. FINDINGS: 3 views of the right foot are obtained. No prior studies are available for comparison at the time of dictation. The skeletal structures are well mineralized. No fracture is seen. There is no bony erosion or periostitis. The joint spaces of the foot are preserved. The overlying soft tissues are within normal limits. IMPRESSION: Unremarkable radiographic assessment of the right foot. Electronically signed by: Devon Pavon M.D. 04/19/2017 1:18 PM Dictated Date/Time: 04/19/2017 1:18 PM
== END | disposition home or self-care (01) ==
LOC: C.RDSM 16:16
PROVIDERS: ATTEND Family Medicine
DX: M79.671 Pain in right foot (principal)

== ENCOUNTER → 2017-09-09 | Outpatient (CLI) | payer OTHER ==
[2017-09-09 17:40] LABS: BASO % 0.5 %; BASO ABS # 0.04 K/uL (0-0.2); EOS % 1.3 %; HEMATOCRIT 40.8 % (37-47); IG# 0.02 K/uL (0.00-0.02); LYMPH % 24.2 %; LYMPH ABS # 1.92 K/uL (1.2-3.4); MEAN CELL VOLUME 82.1 fL (80-100); MEAN CORPUSCULAR HEMOGLOBIN 28.2 pg (25-34); MEAN CORPUSCULAR HGB CONC 34.3 g/dl (32-36); MEAN PLATELET VOLUME 11.9 fL (7.4-10.4); MONO % 8.1 %; MONO ABS # 0.64 K/uL (0.11-0.59); NEUT % 65.6 %; NEUT ABS # 5.21 K/uL (1.4-6.5); PLATELET COUNT 184 K/uL (130-400); RED CELL DISTRIBUTION WIDTH CV 12.4 % (11.5-14.5); RED CELL DISTRIBUTION WIDTH SD 37.2 fL (36.4-46.3); WHITE BLOOD COUNT 7.93 K/uL (4.8-10.8)
== END | disposition home or self-care (01) ==
LOC: C.LAB1850 16:33
PROVIDERS: ATTEND Obstetrics & Gynecology
DX: O02.1 Missed abortion (principal)

== ENCOUNTER 2017-09-12 05:26 | Day surgery (SDC) | payer OTHER ==
--- NOTE | 2017-09-09 17:57 | HISTORY & PHYSICAL EXAMINATION ---
DATE OF ADMISSION: 09/12/2017 PREOPERATIVE HISTORY AND PHYSICAL ADMITTING DIAGNOSIS: Missed AB at 8+ weeks gestational age. ADMISSION HISTORY: The patient is a 32-year-old 4, para 0 with a last menstrual period at 10 July, at 8+ weeks gestational age who is admitted for a suction D and E for a missed AB. Patient was seen in the office on 09 September for her scheduled new OB visit. Ultrasound showed a sac with debris consistent with a missed AB. The patient has had 3 previous pregnancies with first trimester losses. The 1st and 3rd were evaluated in the Emergency Room at [facility]. The first 2 pregnancies were days late for her menses when she miscarried, her third was 6 weeks gestational age, beta-quantitative hCG was only 80. 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 MEDICAL: None. SURGICAL: Merlin teeth extraction. ALLERGIES: IBUPROFEN AND ASPIRIN. SOCIAL HISTORY: No smoking. FAMILY HISTORY: Noncontributory. REVIEW OF SYSTEMS: As per HPI. PHYSICAL EXAMINATION: GENERAL: Shows a pleasant female in no acute distress. VITAL SIGNS: Blood pressure 102/78, height of 5 feet 7 inches, weight 140 pounds. HEENT EXAMINATION: Unremarkable. NECK: Supple. LUNGS: Clear. HEART: With a regular rhythm and rate. ABDOMEN: Soft, nontender. PELVIC: Shows normal external genitalia, vaginal wall pink and rugated. Cervical os is closed. Bimanual examination shows an anterior mobile uterus. Adnexa show no palpable masses. RECTAL: Confirmatory. EXTREMITIES: Shows no deep calf tenderness. NEUROLOGIC: Grossly intact. IMPRESSION: A 32-year-old 4, para 0, 8+ weeks gestational age missed , with habitual pattern. PLAN: The risks, benefits and alternatives to the surgery have been discussed. While the benefits will be removal of gestational and evaluation for genetics, the risks are bleeding, infection, inadvertent perforation of the uterus and failure to remove all gestational tissue. The patient understands this, the permit has been signed, and she wishes to proceed.
[~2017-09-12] VITALS: Ht 172.7 cm; Wt 64.0 kg
[2017-09-12 05:55] VITALS: BP 110/57; PULSE 83; TEMP 37; O2SAT 100; Ht 172.7 cm; Wt 64.0 kg
[2017-09-12] MEDS ORDERED: LIDOCAINE HCL 2% 2 ML VIAL (20MG/ML) ONE (06:39)
[2017-09-12] MEDS ORDERED: PROPOFOL IV EMULSION 10 MG/ML 20 ML VIAL ONE (06:39)
[2017-09-12] MEDS ORDERED: FENTANYL CITRATE INJ 50 MCG/1 ML 2 ML VIAL ONE (06:39)
[2017-09-12] MEDS ORDERED: MIDAZOLAM HCL 1 MG/ML 2ML VIAL ONE (06:39)
--- NOTE | 2017-09-12 07:17 | History & Physical Bridge Note ---
H&P Re-Evaluation Bridge Note: I have examined the patient, reviewed the History & Physical and in the interval since the performance of the History & Physical I have noted the following changes of clinical significance: No changes noted
[2017-09-12] MEDS ORDERED: DOXYCYCLINE HYCLATE 100 MG CAP PO STA (07:27)
[2017-09-12] MEDS ORDERED: DOXYCYCLINE HYCLATE 100 MG CAP ONE (07:31)
[2017-09-12] MEDS ORDERED: LACTATED RINGER'S 1000ML 1,000 ML IV SCH (08:08)
--- NOTE | 2017-09-12 08:08 | [facility] Post Operative Brief Note ---
Immediate Operative Summary Operative Date Sep 12, 2017. Pre-Operative Diagnosis missed ab recurrent loss Post-Operative Diagnosis same Procedure(s) Performed D&E Surgeon Alex Hand Paster Surgeon(s) none Estimated Blood Loss 25cc Findings Consistent with Post-Op Diagnosis Fluids (cc crystalloids) 800cc Specimens pocs Drains None Anesthesia Type General Complication(s) none Disposition Accompanied Pt To Recover: yes Disposition: Recovery Room / PACU
[2017-09-12] MEDS ORDERED: MoRPHine SULFATE 2 MG/ML CARP IV PRN ×2 (08:15)
[2017-09-12] MEDS ORDERED: MoRPHine SULFATE 4 MG/ML 1 ML CARP\\VIAL IV PRN (08:15)
[2017-09-12] MEDS ORDERED: OXYCODONE HCL IR 5 MG TAB (IMMEDIATE RELEASE) PO PRN ×2 (08:15)
--- NOTE | 2017-09-12 08:53 | Anesthesiology Progress Note ---
Anesthesia Post Op Note Date & Time Sep 12, 2017 at 08:52 Vital Signs Pain Intensity: 0 Vital Signs Past 12 Hours Date Time Temp Pulse Resp B/P (MAP) Pulse Ox O2 Delivery O2 Flow Rate FiO2 09/12/17 08:48 73 15 98 09/12/17 08:48 74 15 09/12/17 08:46 99/67 09/12/17 08:43 77 19 09/12/17 08:43 78 19 99 09/12/17 08:41 106/80 09/12/17 08:38 69 14 98 09/12/17 08:38 69 14 09/12/17 08:36 105/68 09/12/17 08:33 58 18 09/12/17 08:33 59 18 98 09/12/17 08:32 61 17 98 09/12/17 08:32 62 17 09/12/17 08:31 103/62 09/12/17 08:27 56 14 100 09/12/17 08:27 57 14 09/12/17 08:26 94/55 09/12/17 08:22 58 14 09/12/17 08:22 57 14 100 09/12/17 08:21 86/55 09/12/17 08:18 92/53 09/12/17 08:17 36.2 60 18 92/53 (63) 100 Oxymask 10 09/12/17 05:55 37 83 18 110/57 (74) 100 Room Air Notes Mental Status: alert / awake / arousable, participated in evaluation Pt Amnestic to Procedure: Yes Nausea / Vomiting: adequately controlled Pain: adequately controlled Airway Patency, RR, SpO2: stable & adequate BP & HR: stable & adequate Hydration State: stable & adequate Anesthetic Complications: no major complications apparent
[2017-09-12] MEDS ORDERED: MEPERIDINE HCL 25 MG/ML CARP IV PRN (09:00)
[2017-09-12] MEDS ORDERED: CeleBREX 100 MG CAP PO SCH (09:00)
[2017-09-12] MEDS ORDERED: FENTANYL CITRATE INJ 50 MCG/1 ML 2 ML VIAL IV PRN (09:00)
[2017-09-12] MEDS ORDERED: ATROPINE SULFATE 0.1 MG/ML 5ML SYR IV PRN (09:00)
[2017-09-12] MEDS ORDERED: ONDANSETRON INJ 2 MG/ML 2 ML VIAL IV PRN (09:00)
[2017-09-12] MEDS ORDERED: EpHEDrine SULFATE INJ 50 MG/ML AMP IV PRN (09:00)
[2017-09-12] MEDS ORDERED: HYDROmorphone INJ 0.5 MG/0.5 ML SYR IV PRN (09:00)
[2017-09-12] MEDS ORDERED: LABETALOL HCL IV 5 MG/ML 20ML IV PRN (09:00)
[2017-09-12 09:05] VITALS: BP 102/65; PULSE 56; TEMP 36.3; O2SAT 99
--- NOTE | 2017-09-12 09:16 | OPERATIVE REPORT ---
DATE OF OPERATION: 09/12/2017 PREOPERATIVE DIAGNOSES: 1. Missed /blighted ovum. 2. Recurrent loss. POSTOPERATIVE DIAGNOSIS: 1. Missed /blighted ovum. 2. Recurrent loss. PROCEDURE: D and E. SURGEON: Diane Johnson MD ANESTHESIA: General per laryngeal mask. ESTIMATED BLOOD LOSS: 25 mL. FLUIDS: 800 mL. URINE OUTPUT: 200 mL clear yellow urine drained from the bladder at the beginning of the procedure. INDICATIONS: The patient is a 4, para 0-0-3-0, who now has her fourth loss, appears to be a blighted ovum. She presents today for D and E for genetic sampling. FINDINGS: Uterus is approximately 6-7 weeks' size, it sounds to 7 cm. Products of conception removed. All available products of conception were sent in the L[employer] container. COMPLICATIONS: None. DRAINS: None. DISPOSITION: To recovery room in stable condition. DESCRIPTION OF PROCEDURE: The patient was taken to the operating room where she was identified verbally and by bracelet. She was placed in dorsal spine position where general anesthesia was induced without difficulty. She was then prepped and draped in normal sterile fashion. Time-out was held identifying correct patient, procedure, positioning, and preoperative antibiotic and exam. An exam under anesthesia was performed with the above noted findings. A weighted speculum was placed in posterior vagina. The anterior lip of the cervix was grasped with a single tooth tenaculum. The uterus sounded to 7 cm, was dilated to #25 Hegar dilator. An 8 mm suction curette was then placed into the uterus with removal of products of conception x2. Curettage was then done in 365 degrees without return of material, another sweep was done with the suction curette and the procedure was terminated. All instruments removed from vagina. Hemostasis was noted to be excellent. All sponge, lap and needle counts were correct x2. The patient tolerated the procedure well and was taken to recovery room in stable condition. I attest to the content of the Intraoperative Record and any orders documented therein. Any exception s are noted below.
[2017-09-12 09:35] VITALS: BP 110/74; PULSE 73; O2SAT 100
--- NOTE | 2017-09-12 09:54 | Discharge Instructions ---
Discharge Instructions Date of Service Sep 12, 2017. Visit Reason for Visit: Missed Discharge Discharge Diagnosis / Problem: s/p D&E Discharge Goals Goal(s): Specific goals Activity Recommendations Activity Limitations: per Instructions/Follow-up section Anesthesia . Post Anesthesia Instructions: If you have had General Anesthesia or IV Sedation: * Do not drive today. * Resume driving when surgeon permits. * Do not make important decisions or sign legal documents today. * Call surgeon for: 1. Temperature elevations greater than 101 degrees F. 2. Uncontrollable pain. 3. Excessive bleeding. 4. Persistent nausea and vomiting. 5. Medication intolerance (nausea, vomiting or rash). * For nausea and vomiting use only clear liquids such as: tea, soda, bouillon until nausea subsides, then gradually increase diet as tolerated. * If you have any concerns or questions, call your surgeon's office. If physician is unavailable and it is an emergency, call 911 or go to the nearest emergency room. . Instructions / Follow-Up Instructions / Follow-Up ACTIVITY RECOMMENDATIONS: * Avoid tampons, douching, hot tubs, pools, and intercourse until bleeding has stopped. * May shower as usual. * No strenuous activity for 24-48 hours. After 24-48 hours, you may do anything you feel like doing (driving and sports are okay). SPECIAL CARE INSTRUCTIONS: Special Diet: * Mild nausea may occur in the immediate post-operative period. * Take clear liquids such as tea, cola or bouillon until all nausea has subsided; you may then resume your normal diet. Special Care: * Light bleeding and vaginal spotting can last from a few days to 3-4 weeks. Call your doctor if bleeding becomes heavier than the heaviest part of your period. * Check your temperature twice a day for one week. If it goes above 100.4 degrees Fahrenheit (38.0 Celsius), notify your doctor. * Call your doctor's office for an appointment for 6 weeks after your surgery. FOLLOW-UP VISIT: Call your doctor's office for an appointment for 6 weeks after your surgery. Diet Recommendations Recommended Home Diet: no limitations, resume previous diet Procedures Procedures Performed: Dilation and evacuation with Anora genetic testing Pending Studies Studies pending at discharge: yes List of pending studies: genetic testing of products of conception Medical Emergencies . Who to Call and When: Medical Emergencies: If at any time you feel your situation is an emergency, please call 911 immediately. . Non-Emergent Contact Non-Emergency issues call your: Wage Adjuster . . "Provider Documentation" section prepared by Diane Johnson. .
[2017-09-12 10:05] VITALS: BP 101/65; PULSE 68; TEMP 37.1; O2SAT 100
== END 2017-09-12 10:40 | disposition home or self-care (01) ==
LOC: C.OR 05:26 → C.ACU 10:40
PROVIDERS: ATTEND Obstetrics & Gynecology
DX: O02.1 Missed abortion (principal); Z88.6 Allergy status to analgesic agent; N96 Recurrent pregnancy loss; Z79.899 Other long term (current) drug therapy